=== PATIENT | male | born 2000 | race Caucasian/White ===

== ENCOUNTER 2022-07-01 15:53 | Emergency (ER) | payer OTHER, SELFPAY ==
[2022-07-01 16:31] VITALS: BP 130/81; PULSE 60; RESP 20; TEMP 36.7; O2SAT 98
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
[2022-07-01] MEDS: ERYTHROMYCIN OPHTH OINTMENT 1 GM TUBE 1 APPLIC EACH EYE (17:06)
== END 2022-07-01 17:13 | disposition home or self-care (01) ==
PROVIDERS: Emergency Provider Emergency Medicine; PCP Family Medicine
DX: S05.02XA Injury of conjunctiva and corneal abrasion without foreign body, left eye, initial encounter (principal); X58.XXXA Exposure to other specified factors, initial encounter
CPT/HCPCS: 99283; A9270

== ENCOUNTER 2025-05-16 21:07 | Emergency (ER) | payer OTHER, SELFPAY ==
[2025-05-16 21:13] VITALS: BP 139/80; PULSE 79; RESP 17; TEMP 37.4; O2SAT 98
--- NOTE | 2025-05-16 21:47 | ECG_ITS ---
Test Date: 2025-05-16 21:55:49 Measurements Intervals Anderson Rate: 80 P: 53 SC: 151 QRS: 14 QRSD: 106 T: 32 QT: 335 QTc: 388 Interpretive Statements SINUS RHYTHM ST ELEVATION, PROBABLY EARLY REPOLARIZATION [ST ELEVATION WITH NORMALLY INFLECTED T WAVE] OTHERWISE NORMAL ECG No previous ECG available for comparison Electronically Signed On 05-17-2025 07:39:16 CDT by Franck Casillas M.D.
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
[2025-05-16] MEDS: SODIUM CHLORIDE 0.9% IV 1,000 ML 999 ML IV CONT (22:00)
[2025-05-16 22:02] LABS: Hematocrit 41.7 % (42.0-52.0); Hemoglobin 13.7 g/dL (14.0-18.0); Immature Granulocyte Percent A 0.2 % (0-0.5); Lymphocytes Absolute Auto 1.75 K/mm3 (0.9-3.2); Mean Corpuscular HGB Conc 32.9 g/dl (32-36); Mean Corpuscular Hemoglobin 29.6 pg (26-34); Mean Corpuscular Volume 90.1 fl (80-100); Nucleated Red Blood Cells Absolute Auto 0.000 K/mm3 (0.0-0.012); Nucleated Red Blood Cells Perc 0.0 % (0.0-0.2); Platelet Count Result 306 k/mm3 (150-375); Red Blood Count 4.63 M/mm3 (4.6-6.20); White Blood Count 8.6 K/mm3 (4.5-10.0)
[2025-05-16 22:19] LABS: Alanine Aminotransferase 29 U/L (6-50); Albumin Level 4.6 g/dL (3.5-5.1); Alkaline Phosphatase 42 U/L (38-126); Anion Gap 12 mmol/L (4-12); Aspartate Amino Transferase 35 U/L (17-59); Bilirubin,Total 0.5 mg/dL (0.2-1.3); Blood Urea Nitrogen 26 mg/dL (9-20); Calcium 9.6 mg/dL (8.4-10.2); Carbon Dioxide 25 mmol/L (22-30); Chloride 105 mmol/L (98-107); Estimated CRCL calculation 115 ml/min; Estimated Glomerular Filt Rate > 60; Glucose 96 mg/dL (65-110); Potassium 4.2 mmol/L (3.4-5.0); Sodium 142 mmol/L (137-145); Total Protein 8.2 g/dL (6.3-8.2)
[2025-05-16 22:24] LABS: Cannabinoid Screen Urine Negative (Negative)
[2025-05-16 22:26] LABS: Troponin I < 0.012 ng/mL (0.000-0.034)
--- OUTSIDE RECORDS SUMMARY | 2025-05-16 22:35 | XMS_ITS | Encounter Summary ---
Author Organization [facility] Address [facility] [place] [address] Care Team Providers Care Machine Bunch Maker Name Role Phone Eden Krueger NP Primary Care Provider [phone] Encounter Details Date Type Department Care Team (Late st Contact Info) Description 04/27/2025 Office Center Message Enc [facility] Family Medicine - [place] [address] [facility] [address] [place] [address] [phone] Eden Krueger NP [address] [place] [address] Skin concern - Photo attached Social History Tobacco Use Types Packs/Day Years Used Date Smoking Tobacco: Former Passive Smoke Exposure: Never Smokeless Tobacco: Never Comments:Patient vapes, pt s tates he stopped vaping now. Alcohol Use Standard Drinks/Week Comments Yes 0 (1 standard drink = 0.6 oz pur e alcohol) socially PHQ-2 Answer Date Recorded Patient Health Questionnaire-2 Score 0 05/10/2024 Sex and Gender Information Value Date Recorded Sex Assigned at Not on file Legal Sex Male 8:39 PM CDT Gender Identity Not on file Sexual Orientation Not on file documented as of this encounter Progress Notes * Eden Krueger NP - 04/28/2025 8:31 AM CDT Can offer virtual visit at 9:40 since pt at that time canceled documented in this encounter Plan of Treatment Not on file documented as of this encounter Visit Diagnoses Not on filedocumented in this encounter Care Teams Machine Bunch Maker Relationship Specialty Start Date End Date Eden Krueger NP [address] [place] [address] PCP - General NURSE PRACTITIONER 10/13/22 documented as of this encounter
--- OUTSIDE RECORDS SUMMARY | 2025-05-16 22:35 | XMS_ITS | Clinical Summary ---
Author Organization [facility] Address [address] [place] [address] Care Team Providers Care Seam Hammerer Name Role Phone Eden Krueger NP Primary Care Provider [phone] Allergies No known active allergies Medications No known medications Active Problems Problem Noted Date Diagnosed Date Testicular nodule 10/13/2022 Testicular pain, left 10/13/2022 Lactose intolerance 10/09/2014 Encounters Date Type Department Care Team Description 04/27/2025 FoodyDirectt Message Enc [facility] Family Medicine [facility] [address] [facility] [address] [place] [address] [phone] Eden Krueger NP Skin concern - Photo attached from Last 3 Months Family History Medical History Relation Comments None Father None Mother Relation Status Comments Father Alive Mother Alive Social History Tobacco Use Types Packs/Day Years Used Date Smoking Tobacco: Former Passive Smoke Exposure: Never Smokeless Tobacco: Never Tobacco Cessation:Counseling Given: No Comments:Patient vapes, pt states he stopped vaping now. Alcohol Use Standard Drinks/Week Comments Yes 0 (1 standard drink = 0.6 oz pur e alcohol) socially PHQ-2 Answer Date Recorded Patient Health Questionnaire-2 Score 0 05/10/2024 Sex and Gender Information Value Date Recorded Sex Assigned at Not on file Legal Sex Male 8:39 PM CDT Gender Identity Not on file Sexual Orientation Not on file Last Filed Vital Signs Vital Sign Reading Time Taken Comments Blood Pressure 120/88 05/10/2024 1:03 PM CDT Pulse 85 05/10/2024 1:03 PM CDT Temperature 37.1 C (98.7 F) 05/10/2024 1:03 PM CDT Respiratory Rate 17 05/10/2024 1:03 PM CDT Oxygen Saturation 97% 05/10/2024 1:03 PM CDT Inhaled Oxygen Concentration - - Weight 87.7 kg (193 lb 6.4 oz) 05/10/2024 1:03 P M CDT Height 182.9 cm (6') 05/10/2024 1:03 PM CDT Body Mass Index 26.23 05/10/2024 1:03 PM CDT Plan of Treatment Health Maintenance Due Date Last Done Comments Annual Physical 2002 HPV Vaccines (1 - Male 3-dos e series) 2014 DTaP, Tdap and Td Vaccines ( 1 - Tdap) 2018 Hepatitis B Vaccines (1 of 3 - 19+ 3-dose series) 2018 PHQ-2 (Physician [place]) 08/31/2024 05/10/2024 COVID-19 Vaccine (1 - 2023-2 5 season) 2025 Hepatitis C Completed 10/14/2022 Meningococcal B Vaccine Aged Out No l onger eligible based on patient's age to complete this topic Meningococcal Vaccine Aged Out No wayne ravinder eligible based on patient's age to complete this topic Pneumococcal Vaccine: Pediat rics (0 to 5 Years) and At-Risk Patients (6 to 49 Years) Aged Out No longer eligi ble based on patient's age to complete this topic RSV Immunizations Under 20 Months Aged Out No longer eligible based on patient's age to complete this topic Procedures Procedure Name Priority Date/Time Associated Diagnosis Comments HEPATITIS C ANTIBODY Routine 10/14/2022 9:24 AM AREA OPERATIONS DIRECTOR Need for hepatitis C screening test from Last 3 Months or Most Recently Relevant to Health Maintenance Results * HEPATITIS C ANTIBODY W/REFLEX (10/14/2022 9:24 AM AREA OPERATIONS DIRECTOR) HEPATITIS C AB NON-REACTI VE NON-REACTI VE 10/14/2022 10:50 AM AREA OPERATIONS DIRECTOR [facility] 10/14/2022 9:24 AM AREA OPERATIONS DIRECTOR us Eden Krueger HI RANGER OPERATOR LABORATORY Final Res ult Performing Organization Address City/State/[facility] Co de Phone Number [facility] [address] [place] [address], from Last 3 Months or Most Recently Relevant to Health Maintenance Insurance [facility] [facility] Care Teams Seam Hammerer Relationship Specialty Start Date End Date Eden Krueger NP [address] [place] [address] PCP - General NURSE PRACTITIONER 10/13/22
--- OUTSIDE RECORDS SUMMARY | 2025-05-16 22:35 | XMS_ITS | Clinical Summary ---
Author Organization [facility] Care Team Providers Care Auto Leasing Manager Name Role Phone Unavailable Primary Care Provider Unavailabl e Social History Tobacco Use Types Packs/Day Years Used Date Smoking Tobacco: Never Assessed Sex and Gender Information Value Date Recorded Sex Assigned at Not on file Legal Sex Male 2:14 PM MEMBER SERVICE SPECIALIST Gender Identity Not on file Sexual Orientation Not on file Plan of Treatment Health Maintenance Due Date Last Done Comments Hepatitis C Virus (HCV) Screening 1999 TdaP Immunization 1999 Human Papillomavirus (HPV) Immunization (1 - Male 3-dose series) 2014 Hepatitis B Immunization (1 of 3 - 19+ 3-dose series) 2018 SARS-COV-2 Immunization (2023- season) 2024 Influenza Immunization (#1) 2025 Respiratory Syncytial Virus (RSV) Immunization (Adult) (1 - 1-dose 75+ series) 2074 Meningococcal Immunization (ACWY) Aged Out No longer eligible based on patient's age to complete this topic Pneumococcal Immunization Combined Aged Out No longer eligible based on patient's age to complete this topic Rotavirus Immunization Aged Out No lo nger eligible based on patient's age to complete this topic
--- OUTSIDE RECORDS SUMMARY | 2025-05-16 22:35 | XMS_ITS | Encounter Summary ---
Author Organization [facility] Address [address] [place] [address] Care Team Providers Care Creative Perfumer Name Role Phone Antonio Quiroz MD Primary Care Provider Eden Cohn NP Primary Care Provider [phone] Encounter Details Date Type Department Care Team (Late st Contact Info) Description 07/04/2017 Abstract [place] [address] , Generic ConversionMD Social History Tobacco Use Types Packs/Day Years Used Date Smoking Tobacco: Never Assessed Sex and Gender Information Value Date Recorded Sex Assigned at Not on file Legal Sex Male 8:39 PM CDT Gender Identity Not on file Sexual Orientation Not on file documented as of this encounter Plan of Treatment Not on file documented as of this encounter Visit Diagnoses Not on filedocumented in this encounter Care Teams Creative Perfumer Relationship Specialty Start Date End Date Antonio Quiroz MD PCP - General 08/06/15 10/12/22 Eden Krueger NP [address] [place], [place] [id number] PCP - General NURSE PRACTITIONER 10/13/22 documented as of this encounter
== END 2025-05-16 23:27 | disposition home or self-care (01) ==
PROVIDERS: Emergency Provider Student in an Organized Health Care Education/Training Program
DX: R42 Dizziness and giddiness (principal); R94.31 Abnormal electrocardiogram [ECG] [EKG]
CPT/HCPCS: 36415; 80053; 80307; 84484; 85025; 93005; 96360; 99284; J7030